=== PATIENT | male | born 1990 | race Caucasian/White ===

== ENCOUNTER 2023-11-22 15:09 | Emergency (ER) | payer SELFPAY ==
[~2023-11-22] VITALS: Ht 188 cm; Wt 78.0 kg
[2023-11-22 15:20] VITALS: O2SAT 99
[2023-11-22] MEDS: HYDROCODONE/ACETAMINOPHEN 5/325MG TABLET PO ONE (17:38)
[2023-11-22] MEDS: TETRACAINE 0.5% OPHTH DROPS 4ML RIGHTEYE ONE (17:38)
[2023-11-22] MEDS: FLUORESCEIN SODIUM 1MG/STRIP RIGHTEYE ONE (17:38)
[2023-11-22] MEDS ORDERED: CIPHCO RIGHTEYE (20:58)
[2023-11-22 22:32] VITALS: BP 128/79; PULSE 70; RESP 20; TEMP 36.66960; O2SAT 99
== END 2023-11-22 22:36 | disposition home or self-care (01) ==
LOC: ER 15:09
DX: S05.01XA Injury of conjunctiva and corneal abrasion without foreign body, right eye, initial encounter (principal); Z98.890 Other specified postprocedural states; X58.XXXA Exposure to other specified factors, initial encounter; Y93.89 Activity, other specified; Y92.89 Other specified places as the place of occurrence of the external cause; Y99.8 Other external cause status
CPT/HCPCS: 70486; 99284